=== PATIENT | female | born 1995 | race Caucasian/White ===

== ENCOUNTER 2016-06-30 11:28 | Emergency (ER) | payer OTHER ==
[~2016-06-30] VITALS: Wt 49.5 kg
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
[2016-06-30] MEDS ORDERED: LIDOCAINE 4% CR TOP ONE (12:30)
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
[2016-06-30] MEDS ORDERED: ACETAMINOPHEN 500 MG TAB PO STA (14:08)
--- NOTE | 2016-06-30 14:28 | RADRPT ---
PROCEDURE: Chest x-ray CLINICAL INDICATION: Chest pain TECHNIQUE: Chest single view COMPARISON: None FINDINGS: The heart is normal in size. The pulmonary vessels are normal in caliber. The lungs are clear. Th e costophrenic angles are sharp. The visualized bony thorax is unremarkable. IMPRESSION: No acute cardiopulmonary disease. No evidence of pneumothorax RPTAT: HH .Lonny Ma MD, Date Time Electronically viewed and signed by .Lonny Ma MD, MD on 06/30/2016 14:27 .W/
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
[2016-06-30] MEDS ORDERED: ACET500C5 PO (14:48)
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
== END 2016-06-30 14:55 | disposition home or self-care (01) ==
LOC: FTE 11:28
DX: S01.81XA Laceration without foreign body of other part of head, initial encounter (principal); R07.9 Chest pain, unspecified; V43.53XA Car driver injured in collision with pick-up truck in traffic accident, initial encounter
CPT/HCPCS: 12013; 71010; 73060; 73130; Z7502; Z7610

== ENCOUNTER 2016-07-02 11:50 | Emergency (ER) | payer OTHER ==
[~2016-07-02] VITALS: Wt 60.0 kg
[~2016-07-02 11:50] MED LIST: ACET500C5 PO
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
== END 2016-07-02 12:26 | disposition home or self-care (01) ==
LOC: FTE 11:50
DX: Z48.01 Encounter for change or removal of surgical wound dressing (principal)
CPT/HCPCS: 99281

== ENCOUNTER 2016-07-07 10:12 | Emergency (ER) | payer OTHER ==
[~2016-07-07] VITALS: Wt 65.0 kg
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
== END 2016-07-07 11:30 | disposition home or self-care (01) ==
LOC: FTE 10:12
DX: Z48.02 Encounter for removal of sutures (principal)
CPT/HCPCS: 99281

== ENCOUNTER 2018-03-17 01:48 | Emergency (ER) | END 2018-03-17 04:45 | disposition home or self-care (01) ==

== ENCOUNTER 2018-03-19 13:47 | Emergency (ER) | END 2018-03-19 15:10 | disposition home or self-care (01) ==

== ENCOUNTER 2018-03-26 15:25 | Emergency (ER) | END 2018-03-26 16:39 | disposition home or self-care (01) ==